=== PATIENT | female | born 1990 | race Caucasian/White ===

== ENCOUNTER 2019-05-12 12:10 | Inpatient (IN) | payer OTHER ==
--- NOTE | 2019-05-12 12:22 | BHS.RME ---
Substance Use & Tx History - Substance Use History Opiates (Heroin) Substance amount: 4 bags Frequency of use: Daily Substance route: Injection (ex: intravenous or skin popping) Date of Last Use: 05/12/19 Cocaine (Powder) Substance amount: $100-150 Frequency of use: Daily Substance route: Injection (ex: intravenous or skin popping) Date of Last Use: 05/10/19 Benzodiazepines Substance amount: klonopin and xanax street 4-5 pills 1 mg Frequency of use: Daily Substance route: Oral Date of Last Use: 05/11/19 COWS - Scale Resting Pulse: 0= [place] 80 or Below Sweatin= Chills/Flushing Restless Observation: 1= Difficult to Sit Still Pupil Size: 0= Normal to Room Light Bone or Joint Aches: 1= Mild Discomfort Runny Nose/ Eye Tearin= Nasal Congestion GI Upset > 30mins: 1= Stomach Cramp Tremor Observation: 1= Tremor [place], Not Seen Yawning Observation: 0= None Anxiety or Irritability: 0= None Goose Flesh Skin: 0=Smooth Skin COWS Score: 6 (sold her methadone bottles for the weekend)
--- NOTE | 2019-05-12 15:02 | HP ---
<Serafin Jose - Last Filed: 05/12/19 16:07> COWS - Scale Resting Pulse: 0= [place] 80 or Below Sweatin= Chills/Flushing Restless Observation: 1= Difficult to Sit Still Pupil Size: 0= Normal to Room Light Bone or Joint Aches: 1= Mild Discomfort Runny Nose/ Eye Tearin= Nasal Congestion GI Upset > 30mins: 1= Stomach Cramp Tremor Observation: 1= Tremor [place], Not Seen Yawning Observation: 0= None Anxiety or Irritability: 0= None Goose Flesh Skin: 0=Smooth Skin COWS Score: 6 (sold her methadone bottles for the weekend) CIWA Score - Admission Criteria OASAS Guidelines: Admission for Medically Managed Detox: Requires at least one of the followin. CIWA greater than 12 2. Seizures within the past 24 hours 3. Delirium tremens within the past 24 hours 4. Hallucinations within the past 24 hours 5. Acute intervention needed for co occurring medical disorder 6. Acute intervention needed for co occurring psychiatric disorder 7. Severe withdrawal that cannot be handled at a lower level of care (continued vomiting, continued diarrhea, abnormal vital signs) requiring intravenous medication and/or fluids 8. Admitting History and Physical - Admission History of Present Illness: States she started using at age 26 after her father . Benzos: First - age 26, Last - 4mg klonopin this AM, uses 10mg Klonopin daily, has withdrawn, no seizures Heroin: First age 26 (states boyfriend gave it to her to ease pain for endometriosis), Last - yest (2 bags), 1-2 bags every few weeks or months, used to sniff, 3 months ago started injecting. Uses when unable to get her methadone. Powdered Cocaine: First - in high school, Last - 1 week ago, $10 bag 3 or 4 times monthly Crack Cocaine: First - 1 month ago, Last - 1 month ago (2 days after first use) , has used only on 2 separate occasions. Crystal Meth: First - 1 week ago, Last - 2 days ago, unsure about dose, but states it was "not much". Has used on 2 occasions EtOH: Last - 7 months ago had a few mimosas at sister's [facility] Ecstasy: First - 10 years ago. States she only used it once. States her Utox likely reflects contamination of her drugs. Started injecting 3 months ago Tobacco: 8-10 cig daily since age 23 Methadone: 115mg. Program: [facility], [address], Saw psychiatrist at [facility] on [address] in [place]. States alprazolam 2 mg bid with 1mg breakthrough PRN dose worked well treating her anxiety. She evidently missed some appointments due to a "misunderstanding" and does not see them regularly anymore. PMH: endometriosis PSH: none Psych: anxiety, ADHD, mild depression FH: alcoholic father (cirrhosis), sister with bipolar Menstrual: LMP today, amount of bleeding varies month to month, cycle length: every 28 days lasts 6 days, no dysmenorrhea, does report dyspareunia Rx: adderol Allergies: none known Reports abdominal pain constant, severe, for 2-3 days. This pain is typical for her menstrual cycle. Will admit to detox with valium taper Admission ROS [facility] - HPI Allergies/Adverse Reactions: Allergies Allergy/AdvReac Type Severity Reaction Status Date / Time No Known Allergies Allergy Verified 05/12/19 15:27 Patient History - Smoking Cessation Smoking history: Current every day smoker Have you smoked in the past 12 months: Yes Hx Chewing Tobacco Use: No Initiated information on smoking cessation: Yes 'Breaking Loose' booklet given: 05/12/19 - Substances abused Benzodiazepine (Klonopin) Substance route: Oral Frequency: Daily Amount used: 5-6 PILLS Age of first use: 28 Date of last use: 05/12/19 Alprazolam (Xanax) Substance route: Oral Frequency: Daily Amount used: 5-6 PILLS Age of first use: 25 Date of last use: 05/12/19 Admission Physical Exam [facility] - Physical General Appearance: Yes: No Apparent Distress, Anxious HEENTM: Yes: Normocephalic Respiratory: Yes: Within Normal Limits, Normal Breath Sounds, No Respiratory Distress, No Accessory Muscle Use Neck: Yes: Within Normal Limits, No masses,lesions,Nodules, Trachea in good position. No: Thyroid enlarged, Thyroid tenderness Cardiology: Yes: Within Normal Limits, Regular Rhythm, Regular Rate, S1, S2 Abdominal: Yes: Within Normal Limits, Normal Bowel Sounds, Non Tender Genitourinary: Yes: Pain (with sex) Back: Yes: Within Normal Limits, Normal Inspection Musculoskeletal: Yes: Within Normal Limits Extremities: Yes: Normal Capillary Refill, Normal Range of Motion, Non-Tender Neurological: Yes: Within Normal Limits, grader operator II-XII NML intact Integumentary: Yes: Within Normal Limits Cleared for Admission S - Detox or Rehab [facility] Level of Care: Medically Supervised Breathalyzer - Breathalyzer Breathalyzer: 0 Urine Drug Screen - Test Device Lot number: [id number] Expiration date: 02/15/21 - Control Is test valid?: Yes - Results Drug screen NEGATIVE: No Urine drug screen results: RENA-Cocaine, MET-Methamphetamine, AMP-Amphetamines, FEN-Fentanyl, MOP-Opiates, MTD-Methadone, BZO-Benzodiazepines, MDMA-Ecstasy Inpatient Rehab Admission - Rehab Decision to Admit Inpatient rehab admission?: Yes - Initial Determination Are CD services needed?: Yes Free of communicable disease: Yes Not in need of hospitalization: Yes - Rehab Admission Criteria Previous failed treatment: Yes Poor recovery environment: Yes Comorbidities: Yes Lacks judgement: Yes Patient is meeting Inpatient Rehab admission criteria:: Yes <Stacie Lin - Last Filed: 05/13/19 08:10> CIWA Score - Admission Criteria OASAS Guidelines: Admission for Medically Managed Detox: Requires at least one of the followin. CIWA greater than 12 2. Seizures within the past 24 hours 3. Delirium tremens within the past 24 hours 4. Hallucinations within the past 24 hours 5. Acute intervention needed for co occurring medical disorder 6. Acute intervention needed for co occurring psychiatric disorder 7. Severe withdrawal that cannot be handled at a lower level of care (continued vomiting, continued diarrhea, abnormal vital signs) requiring intravenous medication and/or fluids 8. Admission Physical Exam [facility] - Vital Signs Vital Signs: Vital Signs - 24 hr 05/12/19 05/12/19 05/12/19 15:30 17:57 20:51 Temperature 97.6 F 99.3 F 98.2 F Pulse Rate 88 90 84 Respiratory 14 17 18 Rate Blood Pressure 112/68 111/70 112/64 05/13/19 05/13/19 05/13/19 00:43 03:30 05:57 Temperature 98.2 F Pulse Rate 72 Respiratory 18 18 16 Rate Blood Pressure 100/70 Cleared for Admission S - Detox or Rehab [facility] Level of Care: Medically Managed (will admit for detox benzos) Detox Regimen/Protocol: Valium Inpatient Rehab Admission - Rehab Decision to Admit Inpatient rehab admission?: No
[2019-05-12 15:34] VITALS: BMI 23.4
[2019-05-12] MEDS ORDERED: MAG HYDROX/AL HYDROX/SIMETH 30 ML UNIT-DOSE CUP PO PRN (15:59)
[2019-05-12] MEDS ORDERED: MELATONIN 5 MG TABLETS PO PRN (15:59)
[2019-05-12] MEDS ORDERED: BISMUTH SUBSALICYLATE 524 MG/30 ML UD PO PRN (15:59)
[2019-05-12] MEDS ORDERED: ACETAMINOPHEN 325 MG TABLET (FP) PO PRN (15:59)
[2019-05-12] MEDS ORDERED: MAGNESIUM CITRATE 300 ML BOTTLE PO PRN (15:59)
[2019-05-12] MEDS ORDERED: MENTHOL/PHENOL 1 EACH UD MM PRN (15:59)
[2019-05-12] MEDS ORDERED: MAGNESIUM HYDROX 2400MG/30ML ORAL SUSPENSION 30 ML CUP PO PRN (15:59)
[2019-05-12] MEDS: diazePAM 5 MG TABLET PO PRN (17:30)
[2019-05-12] MEDS: IBUPROFEN 400 MG TABLET (FP) PO PRN (17:39)
[2019-05-12] MEDS: ACETAMINOPHEN 325 MG TABLET (FP) PO PRN (19:19)
[2019-05-12] MEDS: METHOCARBAMOL 500 MG TABLET PO PRN (20:51)
[2019-05-12] MEDS: hydrOXYzine PAMOATE 25 MG CAPSULE (FP) PO PRN (20:51)
[2019-05-12] MEDS: THIAMINE HCL 100 MG TABLET (FP) PO SCH (21:39)
[2019-05-12] MEDS: diazePAM 5 MG TABLET PO SCH (21:39)
[2019-05-13] MEDS: diazePAM 5 MG TABLET PO SCH ×3 (06:10→21:38)
[2019-05-13] MEDS: ACETAMINOPHEN 325 MG TABLET (FP) PO PRN ×2 (06:10→21:39)
[2019-05-13] MEDS: hydrOXYzine PAMOATE 25 MG CAPSULE (FP) PO PRN (06:12)
[2019-05-13] MEDS ORDERED: METHADONE HCL 10 MG TABLET PO ONE (09:08)
[2019-05-13] MEDS ORDERED: METHADONE 80 MG, METHADONE 30 MG, METHADONE 5 MG PO ONE (09:35)
[2019-05-13] MEDS ORDERED: METHADONE HCL 5 MG TABLET ONE (09:44)
[2019-05-13] MEDS ORDERED: METHADONE HCL 40 MG DISPERSABLE TABLET ONE (09:44)
[2019-05-13] MEDS ORDERED: METHADONE HCL 10 MG TABLET ONE (09:44)
[2019-05-13] MEDS ORDERED: METHADONE HCL 40 MG DISPERSABLE TABLET PO SCH (10:00)
[2019-05-13] MEDS: PRENATAL VITAMINS W/ FOLIC ACID TABLET (FP) PO SCH (10:07)
[2019-05-13] MEDS: IBUPROFEN 400 MG TABLET (FP) PO PRN ×2 (10:08→17:03)
[2019-05-13] MEDS: diazePAM 5 MG TABLET PO PRN ×2 (10:10→17:03)
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
[2019-05-13] MEDS ORDERED: hydrOXYzine PAMOATE 50 MG CAPSULE (FP) PO PRN (12:10)
[2019-05-13] MEDS: LIDOCAINE 5% TOPICAL PATCH TP SCH (12:26)
[2019-05-13] MEDS ORDERED: NICOTINE POLACRILEX 2 MG GUM BUC PRN (12:31)
--- NOTE | 2019-05-13 12:38 | PN ---
BHS CIWA - CIWA Score Nausea/Vomitin-Mild Nausea/No Vomiting Muscle Tremors: 1-None Visible, but [place] Anxiety: 2 Agitation: 2 Paroxysmal Sweats: No Perspiration Orientation: 0-Oriented Tacttile Disturbances: 1-Very Mild Itch/Numbness Auditory Disturbances: 0-None Visual Disturbances: 0-None Headache: 2-Mild CIWA-Ar Total Score: 9 BHS Progress Note (SOAP) Subjective: alert,irritable,anxious,interrupted sleep,pin in the body Objective: 05/13/19 12:36 Vital Signs Temperature 97.9 F 05/13/19 09:09 Pulse Rate 90 05/13/19 09:09 Respiratory Rate 16 05/13/19 09:09 Blood Pressure 113/71 05/13/19 09:09 O2 Sat by Pulse Oximetry (%) Laboratory Last Values POC Urine HCG, Qual Negative 05/12/19 15:59 Assessment: 05/13/19 12:37 withdrawal symptom Plan: continue detox valium regimen,mmtp 115 mgs/day
[2019-05-13] MEDS: NICOTINE 14 MG/24 HOURS TOPICAL PATCH TD SCH (12:56)
[2019-05-13] MEDS: THIAMINE HCL 100 MG TABLET (FP) PO SCH (21:37)
[2019-05-13] MEDS: DOXEPIN HCL 50 MG CAPSULE PO SCH (21:38)
[2019-05-13] MEDS: LIDOCAINE PATCH REMOVAL MC SCH (23:51)
[2019-05-14] MEDS ORDERED: METHADONE HCL 40 MG DISPERSABLE TABLET ONE (04:34)
[2019-05-14] MEDS ORDERED: METHADONE HCL 5 MG TABLET ONE (04:34)
[2019-05-14] MEDS ORDERED: METHADONE HCL 10 MG TABLET ONE (04:34)
[2019-05-14] MEDS: METHADONE 80 MG, METHADONE 30 MG, METHADONE 5 MG PO SCH (05:43)
[2019-05-14] MEDS: diazePAM 5 MG TABLET PO SCH ×2 (05:43→17:08)
[2019-05-14] MEDS: METHOCARBAMOL 500 MG TABLET PO PRN ×2 (05:44→20:03)
[2019-05-14] MEDS ORDERED: METHADONE HCL 10 MG TABLET PO SCH (06:00)
[2019-05-14] MEDS: LIDOCAINE 5% TOPICAL PATCH TP SCH (10:18)
[2019-05-14] MEDS: PRENATAL VITAMINS W/ FOLIC ACID TABLET (FP) PO SCH (10:19)
[2019-05-14] MEDS: NICOTINE 14 MG/24 HOURS TOPICAL PATCH TD SCH (10:19)
[2019-05-14] MEDS: diazePAM 5 MG TABLET PO PRN (10:21)
[2019-05-14 10:58] LABS: HEMATOCRIT 34.3 % (32.4-45.2); HEMOGLOBIN 11.6 GM/dL (10.7-15.3); MCHC 33.9 g/dl (32.0-36.0); MEAN CELL VOLUME 85.6 fl (80-96); MEAN PLT VOLUME 9.6 fl (7.5-11.1); PLATELET COUNT 211 K/MM3 (134-434); RBC 4.01 M/mm3 (3.60-5.2); RDW 13.9 % (11.6-15.6); WHITE BLOOD COUNT 5.5 K/mm3 (4.0-10.0)
[2019-05-14 11:28] LABS: ALBUMIN 3.2 g/dl (3.4-5.0); BILIRUBIN,TOTAL 0.2 mg/dL (0.2-1); BLOOD UREA NITROGEN 11.1 mg/dL (7-18); CALCIUM 8.6 mg/dL (8.5-10.1); CREATININE 0.7 mg/dL (0.55-1.3); POTASSIUM 4.3 mmol/L (3.5-5.1); TOT PROT 6.3 g/dl (6.4-8.2)
--- NOTE | 2019-05-14 13:05 | PN ---
S CIWA - CIWA Score Nausea/Vomitin Muscle Tremors: 1-None Visible, but [place] Anxiety: 2 Agitation: 1-Slight > Activity Paroxysmal Sweats: 2 Orientation: 0-Oriented Tacttile Disturbances: 1-Very Mild Itch/Numbness Auditory Disturbances: 0-None Visual Disturbances: 0-None Headache: 0-None Present CIWA-Ar Total Score: 9 BHS Progress Note (SOAP) Subjective: interrupted sleep, sweats, shakes, abd pains has menses Objective: 05/14/19 13:03 Vital Signs Temperature 99.1 F 05/14/19 08:51 Pulse Rate 82 05/14/19 08:51 Respiratory Rate 18 05/14/19 08:51 Blood Pressure 106/68 05/14/19 08:51 O2 Sat by Pulse Oximetry (%) Laboratory Tests 05/12/19 05/14/19 05/14/19 15:59 08:00 08:00 WBC 5.5 RBC 4.01 Hgb 11.6 Hct 34.3 MCV 85.6 MCH 29.0 MCHC 33.9 RDW 13.9 Plt Count 211 MPV 9.6 Sodium Potassium Chloride Carbon Dioxide Anion Gap BUN Creatinine Est GFR (CKD-EPI)AfAm Est GFR (CKD-EPI)NonAf Random Glucose Calcium Total Bilirubin AST ALT Alkaline Phosphatase Total Protein Albumin POC Urine HCG, Qual Negative RPR Titer HIV 1&2 Antibody Screen Negative HIV P24 Antigen Negative 05/14/19 05/14/19 08:00 08:00 WBC RBC Hgb Hct MCV MCH MCHC RDW Plt Count MPV Sodium 141 Potassium 4.3 Chloride 108 H Carbon Dioxide 27 Anion Gap 6 L BUN 11.1 Creatinine 0.7 Est GFR (CKD-EPI)AfAm 136.66 Est GFR (CKD-EPI)NonAf 117.91 Random Glucose 85 Calcium 8.6 Total Bilirubin 0.2 AST 19 ALT 18 Alkaline Phosphatase 67 Total Protein 6.3 L Albumin 3.2 L POC Urine HCG, Qual RPR Titer Nonreactive HIV 1&2 Antibody Screen HIV P24 Antigen pt aox3 in nad ambulating Assessment: 05/14/19 13:03 withdrawal sx's menses anemia 05/14/19 13:04 Plan: cont. detox increase fluids feso4 325mg daily
[2019-05-14] MEDS: LIDOCAINE PATCH REMOVAL MC SCH (22:01)
[2019-05-14] MEDS: THIAMINE HCL 100 MG TABLET (FP) PO SCH (22:02)
[2019-05-14] MEDS: ACETAMINOPHEN 325 MG TABLET (FP) PO PRN (22:04)
[2019-05-14] MEDS: DOXEPIN HCL 50 MG CAPSULE PO SCH (22:36)
[2019-05-15] MEDS ORDERED: METHADONE HCL 10 MG TABLET ONE (04:33)
[2019-05-15] MEDS ORDERED: METHADONE HCL 5 MG TABLET ONE (04:33)
[2019-05-15] MEDS ORDERED: METHADONE HCL 40 MG DISPERSABLE TABLET ONE (04:33)
[2019-05-15] MEDS ORDERED: diazePAM 5 MG TABLET PO ONE (06:00)
[2019-05-15] MEDS: METHADONE 80 MG, METHADONE 30 MG, METHADONE 5 MG PO SCH (08:44)
--- NOTE | 2019-05-15 10:05 | DS ---
[facility] Detox Discharge Summary Admission Date: 05/12/19 Discharge Date: 05/15/19 - History Present History: Alcohol Dependence, Cocaine Dependence, Opioid Dependence, Sedative Dependence, MMTP Pertinent Past History: Pt with h/o polysubstance use- on MAT methadone 115mg. ON benzo detox. Completed detox. Going to rehab today. Vital Signs - 24 hr 05/14/19 05/14/19 05/14/19 12:45 19:32 20:52 Temperature 98.2 F 98.8 F 98.4 F Pulse Rate 59 L 67 85 Respiratory 16 16 18 Rate Blood Pressure 101/63 107/71 99/59 L 05/15/19 05/15/19 05/15/19 00:30 03:30 07:35 Temperature 97.8 F Pulse Rate 71 Respiratory 16 17 18 Rate Blood Pressure 100/57 L Laboratory Tests 05/12/19 05/14/19 05/14/19 15:59 08:00 08:00 WBC 5.5 RBC 4.01 Hgb 11.6 Hct 34.3 MCV 85.6 MCH 29.0 MCHC 33.9 RDW 13.9 Plt Count 211 MPV 9.6 Sodium Potassium Chloride Carbon Dioxide Anion Gap BUN Creatinine Est GFR (CKD-EPI)AfAm Est GFR (CKD-EPI)NonAf Random Glucose Calcium Total Bilirubin AST ALT Alkaline Phosphatase Total Protein Albumin POC Urine HCG, Qual Negative RPR Titer HIV 1&2 Antibody Screen Negative HIV P24 Antigen Negative 05/14/19 05/14/19 08:00 08:00 WBC RBC Hgb Hct MCV MCH MCHC RDW Plt Count MPV Sodium 141 Potassium 4.3 Chloride 108 H Carbon Dioxide 27 Anion Gap 6 L BUN 11.1 Creatinine 0.7 Est GFR (CKD-EPI)AfAm 136.66 Est GFR (CKD-EPI)NonAf 117.91 Random Glucose 85 Calcium 8.6 Total Bilirubin 0.2 AST 19 ALT 18 Alkaline Phosphatase 67 Total Protein 6.3 L Albumin 3.2 L POC Urine HCG, Qual RPR Titer Nonreactive HIV 1&2 Antibody Screen HIV P24 Antigen Home Medication List Medication Instructions Recorded Confirmed Type Methadone [Dolophine -] 115 mg PO DAILY 05/12/19 05/12/19 History Active Medications Generic Name Dose Route Start Last Admin Trade Name Freq PRN Reason Stop Dose Admin Acetaminophen 650 mg 05/12/19 15:59 05/14/19 22:04 Tylenol - PO 650 mg Q6H PRN Administration PAIN LEVEL 4 - 6 Acetaminophen 650 mg 05/12/19 15:59 Tylenol - PO Q6H PRN FEVER Al Hydroxide/Mg Hydroxide 30 ml 05/12/19 15:59 Mylanta Oral Suspension - PO Q6H PRN DYSPEPSIA Bismuth Subsalicylate 524 mg 05/12/19 15:59 05/15/19 06:43 Pepto-Bismol - PO 524 mg Q1H PRN Administration DIARRHEA Diazepam 10 mg 05/12/19 15:59 05/14/19 10:21 Valium - PO 05/15/19 15:58 10 mg Q4H PRN Administration WITHDRAWAL(CONT SUBST) Doxepin HCl 50 mg 05/13/19 22:00 05/14/19 22:36 Sinequan - PO 50 mg HS SAMM Administration Eucalyptus/Menthol/Phenol/Sorbitol 1 each 05/12/19 15:59 Cepastat Lozenge - MM 05/18/19 16:00 Q4H PRN SORE THROAT Hydroxyzine Pamoate 50 mg 05/13/19 12:10 05/14/19 17:12 Vistaril - PO 50 mg Q4H PRN Administration ANXIETY Ibuprofen 400 mg 05/12/19 15:59 05/13/19 17:03 Motrin - PO 400 mg Q6H PRN Administration PAIN LEVEL 1 - 3 Lidocaine 1 patch 05/13/19 10:30 05/14/19 10:18 Lidoderm Patch - TP 1 patch DAILY SAMM Administration Magnesium Citrate 300 ml 05/12/19 15:59 Citroma - PO Q48H PRN CONSTIPATION Magnesium Hydroxide 30 ml 05/12/19 15:59 Milk Of Magnesia - PO PRN PRN CONSTIPATION Melatonin 5 mg 05/12/19 15:59 05/12/19 21:38 Melatonin PO 5 mg HS PRN Administration INSOMNIA Methadone HCl 80 mg/ Methadone 115 mg 05/14/19 06:00 05/15/19 08:44 HCl 30 mg/ Methadone HCl 5 mg PO 05/20/19 05:59 115 mg DAILY@0600 SAMM Administration Methocarbamol 500 mg 05/12/19 15:59 05/14/19 20:03 Robaxin - PO 05/18/19 16:00 500 mg Q6H PRN Administration MUSCLE SPASMS Miscellaneous 1 each 05/13/19 22:00 05/14/19 22:01 Lidoderm Patch Removal MC 1 each DAILY@2200 SAMM Administration Nicotine 14 mg 05/13/19 12:45 05/14/19 10:19 Nicoderm Patch - TD 14 mg DAILY SAMM Administration Nicotine Polacrilex 2 mg 05/13/19 12:31 Nicorette Gum - BUC Q2H PRN NICOTINE REPLACEMENT RX Multivit/Folic Acid/Iron 1 tab 05/13/19 10:00 05/14/19 10:19 Vitamins (Sjr) - PO 1 tab DAILY SAMM Administration Thiamine HCl 100 mg 05/12/19 22:00 05/14/19 22:02 Vitamin B1 - PO 100 mg HS SAMM Administration Laboratory Tests 05/12/19 05/14/19 05/14/19 15:59 08:00 08:00 WBC 5.5 RBC 4.01 Hgb 11.6 Hct 34.3 MCV 85.6 MCH 29.0 MCHC 33.9 RDW 13.9 Plt Count 211 MPV 9.6 Sodium Potassium Chloride Carbon Dioxide Anion Gap BUN Creatinine Est GFR (CKD-EPI)AfAm Est GFR (CKD-EPI)NonAf Random Glucose Calcium Total Bilirubin AST ALT Alkaline Phosphatase Total Protein Albumin POC Urine HCG, Qual Negative RPR Titer HIV 1&2 Antibody Screen Negative HIV P24 Antigen Negative 05/14/19 05/14/19 08:00 08:00 WBC RBC Hgb Hct MCV MCH MCHC RDW Plt Count MPV Sodium 141 Potassium 4.3 Chloride 108 H Carbon Dioxide 27 Anion Gap 6 L BUN 11.1 Creatinine 0.7 Est GFR (CKD-EPI)AfAm 136.66 Est GFR (CKD-EPI)NonAf 117.91 Random Glucose 85 Calcium 8.6 Total Bilirubin 0.2 AST 19 ALT 18 Alkaline Phosphatase 67 Total Protein 6.3 L Albumin 3.2 L POC Urine HCG, Qual RPR Titer Nonreactive HIV 1&2 Antibody Screen HIV P24 Antigen Vital Signs - 24 hr 05/14/19 05/14/19 05/14/19 12:45 19:32 20:52 Temperature 98.2 F 98.8 F 98.4 F Pulse Rate 59 L 67 85 Respiratory 16 16 18 Rate Blood Pressure 101/63 107/71 99/59 L 05/15/19 05/15/19 05/15/19 00:30 03:30 07:35 Temperature 97.8 F Pulse Rate 71 Respiratory 16 17 18 Rate Blood Pressure 100/57 L - Physical Exam Results Vital Signs: Vital Signs Temperature 97.8 F 05/15/19 07:35 Pulse Rate 71 05/15/19 07:35 Respiratory Rate 18 05/15/19 07:35 Blood Pressure 100/57 L 05/15/19 07:35 O2 Sat by Pulse Oximetry (%) - Treatment Hospital Course: Detox Protocol Followed, Detoxed Safely, Responded well, Discharged Condition Good, Rehab Referral Accepted - Medication Discharge Medications: Ambulatory Orders Methadone [Dolophine -] 115 mg PO DAILY 05/12/19 - AMA Did Patient Leave Against Medical Advice: Yes
[2019-05-15] MEDS: PRENATAL VITAMINS W/ FOLIC ACID TABLET (FP) PO SCH (10:46)
[2019-05-15] MEDS: NICOTINE 14 MG/24 HOURS TOPICAL PATCH TD SCH (10:46)
[2019-05-15] MEDS: LIDOCAINE 5% TOPICAL PATCH TP SCH (10:46)
[2019-05-15 12:15] VITALS: BP 94/64; PULSE 64; TEMP 98.4
== END 2019-05-15 13:25 | disposition other institution (70) | DRG 773 ==
LOC: YASAS 12:10 → Y6N 16:28
PROVIDERS: ADMIT Allergy & Immunology; ATTEND Allergy & Immunology
PROC: HZ2ZZZZ Detoxification Services for Substance Abuse Treatment (ICD-10-PCS; principal; 2019-05-12)
DX: F10.230 Alcohol dependence with withdrawal, uncomplicated (principal); F11.20 Opioid dependence, uncomplicated; F13.20 Sedative, hypnotic or anxiolytic dependence, uncomplicated; F14.20 Cocaine dependence, uncomplicated; F17.210 Nicotine dependence, cigarettes, uncomplicated; F19.280 Other psychoactive substance dependence with psychoactive substance-induced anxiety disorder; F19.282 Other psychoactive substance dependence with psychoactive substance-induced sleep disorder; F90.9 Attention-deficit hyperactivity disorder, unspecified type; D64.9 Anemia, unspecified; Z62.810 Personal history of physical and sexual abuse in childhood; Z91.410 Personal history of adult physical and sexual abuse; Z87.42 Personal history of other diseases of the female genital tract
CPT/HCPCS: 36415; 80053; 81025; 85027; 86593; 87389

== ENCOUNTER 2019-05-15 13:01 | Inpatient (IN) | payer OTHER ==
[2019-05-15] MEDS ORDERED: P-EPHED 60MG/TRIPROLIDI 2.5MG TABLET PO PRN (13:32)
[2019-05-15] MEDS ORDERED: ACETAMINOPHEN 325 MG TABLET (FP) PO PRN (13:32)
[2019-05-15] MEDS ORDERED: guaiFENesin 200 MG/10 ML 10 ML UNIT-DOSE CUPS PO PRN (13:32)
[2019-05-15] MEDS ORDERED: MENTHOL/PHENOL 1 EACH UD MM PRN (13:32)
[2019-05-15] MEDS ORDERED: MAGNESIUM CITRATE 300 ML BOTTLE PO PRN (13:32)
[2019-05-15] MEDS ORDERED: MAG HYDROX/AL HYDROX/SIMETH 30 ML UNIT-DOSE CUP PO PRN (13:32)
[2019-05-15] MEDS ORDERED: MAGNESIUM HYDROX 2400MG/30ML ORAL SUSPENSION 30 ML CUP PO PRN (13:32)
[2019-05-15] MEDS ORDERED: IBUPROFEN 400 MG TABLET (FP) PO PRN (13:32)
[2019-05-15] MEDS ORDERED: LOPERAMIDE HCL 2 MG CAPSULE PO PRN (13:32)
--- NOTE | 2019-05-15 13:36 | PN ---
[facility] Progress Note Note: Patient admitted to [facility], labs, problem list, documentation including detox physical and treatment reviewed, home medications reviewed. Orders placed; continue to monitor.
--- NOTE | 2019-05-15 13:37 | HP ---
[facility] Rehab Assess/Revision - Admission History Admitted to Rehab from: [facility] Date of Admission to Rehab: 05/15/19 - Findings Detox History & Physical reviewed: Yes Concur with findings: Yes Inpatient Rehab Admission - Rehab Decision to Admit Inpatient rehab admission?: Yes - Initial Determination Are CD services needed?: Yes Free of communicable disease: Yes Not in need of hospitalization: Yes - Rehab Admission Criteria Previous failed treatment: Yes Poor recovery environment: Yes Comorbidities: No Lacks judgement: Yes Patient is meeting Inpatient Rehab admission criteria:: Yes
[2019-05-15] MEDS: THIAMINE HCL 100 MG TABLET (FP) PO SCH (21:23)
[2019-05-15] MEDS: MELATONIN 5 MG TABLETS PO PRN (21:23)
[2019-05-16] MEDS ORDERED: METHADONE HCL 5 MG TABLET ONE (07:02)
[2019-05-16] MEDS ORDERED: METHADONE HCL 10 MG TABLET ONE (07:02)
[2019-05-16] MEDS ORDERED: METHADONE HCL 40 MG DISPERSABLE TABLET ONE (07:02)
[2019-05-16] MEDS: METHADONE 80 MG, METHADONE 30 MG, METHADONE 5 MG PO SCH (07:05)
[2019-05-16] MEDS ORDERED: METHADONE 80 MG, METHADONE 30 MG, METHADONE 5 MG PO SCH (10:00)
[2019-05-16] MEDS ORDERED: METHADONE HCL 40 MG DISPERSABLE TABLET PO SCH (10:00)
[2019-05-16] MEDS: NICOTINE 14 MG/24 HOURS TOPICAL PATCH TD SCH (10:07)
[2019-05-16] MEDS: PRENATAL VITAMINS W/ FOLIC ACID TABLET (FP) PO SCH (10:08)
--- NOTE | 2019-05-16 12:32 | CONSULT ---
[facility] Psychiatric Consult - Data Date of interview: 05/16/19 Admission source: [facility] Identifying data: Patient is a 28 year old single female, without children, unemployed, domiciled, and is supported by family. This is patient's first admission to rehab at [facility]. Patient admitted to for opioid, cocaine, and benzodiazepine dependence. Substance Abuse History: Smoking Cessation. Smoking history: Current every day smoker. Have you smoked in the past 12 months: Yes. Hx Chewing Tobacco Use: No. Initiated information on smoking cessation: Yes. 'Breaking Loose' booklet given: 05/12/19. - Substances abused. Benzodiazepine (Klonopin). Substance route: Oral. Frequency: Daily. Amount used: 5-6 PILLS. Age of first use: 28. Date of last use: 05/12/19. Alprazolam (Xanax). Substance route: Oral. Frequency: Daily. Amount used: 5-6 PILLS. Age of first use: 25. Date of last use: 05/12/19 Medical History: Significant for endometriosis Psychiatric History: Patient's first psychiatric contact was three years ago after her dad . Ms. Mckeon saw a psychiatrist +therapist at [facility] who diagnosed her with MDD + Anxiety disorder and prescribed her xanax+celexa. After one year she discontinued treatment. Patient then saw a psychiatrist at [facility] prison rehab treatment several weeks ago who prescribed her doxepin 50mg HS. Patient seen by Dr. Olea in detox and was prescribed doxepin 50mg HS + Vistaril 50mg q4h for anxiety. Patient denies history of psychiatric hospitalizations and suicide attempt. Physical/Sexual Abuse/Trauma History: denies. Mental Status Exam - Mental Status Exam Alert and Oriented to: Time, Place, Person Cognitive Function: Good Patient Appearance: Well Groomed Mood: Sad Affect: Mood Congruent Patient Behavior: Crying (tearful- does not want to speak about the reason she is tearful. ) Speech Pattern: Appropriate Voice Loudness: Normal Thought Process: Intact, Goal Oriented Thought Disorder: Not Present Hallucinations: Denies Suicidal Ideation: Denies Homicidal Ideation: Denies Insight/Judgement: Poor Sleep: Fair Appetite: Fair Muscle strength/Tone: Normal Gait/Station: Normal Psychiatric Findings - Problem List ([place] 1, 2,3) (1) Cocaine use disorder Current Visit: Yes Status: Acute (2) Anxiety disorder Current Visit: Yes Status: Chronic (3) Substance-induced sleep disorder Current Visit: Yes Status: Acute (4) Opioid dependence on agonist therapy Current Visit: Yes Status: Chronic (5) Methamphetamine dependence Current Visit: Yes Status: Chronic (6) Substance-induced anxiety disorder Current Visit: Yes Status: Acute - Initial Treatment Plan Initial Treatment Plan: Psychoeducation provided. Rehab in progress. Will continue Doxepin 50mg HS + Vistaril 50mg q4h for anxiety. Benefits and side effects discussed. Verbal consent given.
[2019-05-16] MEDS ORDERED: PT OWN MED DRAWER 7, Y5N ONE (21:04)
[2019-05-16] MEDS: THIAMINE HCL 100 MG TABLET (FP) PO SCH (21:59)
[2019-05-16] MEDS: DOXEPIN HCL 50 MG CAPSULE PO SCH (21:59)
[2019-05-16] MEDS: hydrOXYzine PAMOATE 50 MG CAPSULE (FP) PO PRN (22:00)
[2019-05-17] MEDS ORDERED: METHADONE HCL 5 MG TABLET ONE (06:09)
[2019-05-17] MEDS ORDERED: METHADONE HCL 40 MG DISPERSABLE TABLET ONE (06:09)
[2019-05-17] MEDS ORDERED: METHADONE HCL 10 MG TABLET ONE (06:09)
[2019-05-17] MEDS: METHADONE 80 MG, METHADONE 30 MG, METHADONE 5 MG PO SCH (07:02)
[2019-05-17] MEDS: hydrOXYzine PAMOATE 50 MG CAPSULE (FP) PO PRN ×2 (07:04→21:24)
[2019-05-17] MEDS: PRENATAL VITAMINS W/ FOLIC ACID TABLET (FP) PO SCH (09:39)
[2019-05-17] MEDS: NICOTINE 14 MG/24 HOURS TOPICAL PATCH TD SCH (09:39)
[2019-05-17] MEDS: THIAMINE HCL 100 MG TABLET (FP) PO SCH (21:24)
[2019-05-17] MEDS: DOXEPIN HCL 50 MG CAPSULE PO SCH (21:25)
[2019-05-18] MEDS ORDERED: METHADONE HCL 5 MG TABLET ONE (06:04)
[2019-05-18] MEDS ORDERED: METHADONE HCL 40 MG DISPERSABLE TABLET ONE (06:05)
[2019-05-18] MEDS ORDERED: METHADONE HCL 10 MG TABLET ONE (06:05)
[2019-05-18] MEDS: METHADONE 80 MG, METHADONE 30 MG, METHADONE 5 MG PO SCH (06:51)
[2019-05-18] MEDS: hydrOXYzine PAMOATE 50 MG CAPSULE (FP) PO PRN ×2 (06:53→21:13)
[2019-05-18] MEDS: PRENATAL VITAMINS W/ FOLIC ACID TABLET (FP) PO SCH (10:18)
[2019-05-18] MEDS: NICOTINE 14 MG/24 HOURS TOPICAL PATCH TD SCH (10:18)
[2019-05-18] MEDS ORDERED: PT OWN MED DRAWER 7, Y5N ONE ×2 (21:04→21:48)
[2019-05-18] MEDS: MELATONIN 5 MG TABLETS PO PRN (21:12)
[2019-05-18] MEDS: THIAMINE HCL 100 MG TABLET (FP) PO SCH (21:12)
[2019-05-18] MEDS: DOXEPIN HCL 50 MG CAPSULE PO SCH (21:13)
[2019-05-19] MEDS ORDERED: METHADONE HCL 10 MG TABLET ONE (06:13)
[2019-05-19] MEDS ORDERED: METHADONE HCL 5 MG TABLET ONE (06:13)
[2019-05-19] MEDS ORDERED: METHADONE HCL 40 MG DISPERSABLE TABLET ONE (06:14)
[2019-05-19] MEDS: METHADONE 80 MG, METHADONE 30 MG, METHADONE 5 MG PO SCH (06:20)
[2019-05-19] MEDS: hydrOXYzine PAMOATE 50 MG CAPSULE (FP) PO PRN ×2 (06:21→21:04)
[2019-05-19] MEDS: NICOTINE 14 MG/24 HOURS TOPICAL PATCH TD SCH (10:08)
[2019-05-19] MEDS: PRENATAL VITAMINS W/ FOLIC ACID TABLET (FP) PO SCH (10:09)
[2019-05-19] MEDS: THIAMINE HCL 100 MG TABLET (FP) PO SCH (21:03)
[2019-05-19] MEDS: DOXEPIN HCL 50 MG CAPSULE PO SCH (21:04)
[2019-05-20] MEDS ORDERED: METHADONE HCL 10 MG TABLET ONE (06:16)
[2019-05-20] MEDS ORDERED: METHADONE HCL 5 MG TABLET ONE (06:16)
[2019-05-20] MEDS ORDERED: METHADONE HCL 40 MG DISPERSABLE TABLET ONE (06:16)
[2019-05-20] MEDS: METHADONE 80 MG, METHADONE 30 MG, METHADONE 5 MG PO SCH (06:51)
[2019-05-20] MEDS: PRENATAL VITAMINS W/ FOLIC ACID TABLET (FP) PO SCH (10:10)
[2019-05-20] MEDS: NICOTINE 14 MG/24 HOURS TOPICAL PATCH TD SCH (10:10)
[2019-05-20] MEDS: hydrOXYzine PAMOATE 50 MG CAPSULE (FP) PO PRN ×2 (10:12→21:15)
[2019-05-20] MEDS: DOXEPIN HCL 50 MG CAPSULE PO SCH (21:14)
[2019-05-20] MEDS: THIAMINE HCL 100 MG TABLET (FP) PO SCH (21:14)
[2019-05-20] MEDS ORDERED: COLLOIDAL OATMEAL 1 BAR EACH TP PRN (22:50)
[2019-05-21] MEDS ORDERED: METHADONE HCL 5 MG TABLET ONE (06:47)
[2019-05-21] MEDS ORDERED: METHADONE HCL 10 MG TABLET ONE (06:47)
[2019-05-21] MEDS ORDERED: METHADONE HCL 40 MG DISPERSABLE TABLET ONE (06:47)
[2019-05-21] MEDS: METHADONE 80 MG, METHADONE 30 MG, METHADONE 5 MG PO SCH (06:50)
[2019-05-21] MEDS: hydrOXYzine PAMOATE 50 MG CAPSULE (FP) PO PRN ×2 (06:52→18:14)
[2019-05-21] MEDS: NICOTINE 14 MG/24 HOURS TOPICAL PATCH TD SCH (10:00)
[2019-05-21] MEDS: PRENATAL VITAMINS W/ FOLIC ACID TABLET (FP) PO SCH (10:00)
[2019-05-21] MEDS: THIAMINE HCL 100 MG TABLET (FP) PO SCH (21:05)
[2019-05-21] MEDS: DOXEPIN HCL 50 MG CAPSULE PO SCH (21:06)
[2019-05-21] MEDS: DOCUSATE SODIUM 100 MG CAPSULE (FP) PO SCH (21:07)
[2019-05-22] MEDS ORDERED: METHADONE HCL 5 MG TABLET ONE (06:52)
[2019-05-22] MEDS ORDERED: METHADONE HCL 40 MG DISPERSABLE TABLET ONE (06:53)
[2019-05-22] MEDS ORDERED: METHADONE HCL 10 MG TABLET ONE (06:53)
[2019-05-22] MEDS: METHADONE 80 MG, METHADONE 30 MG, METHADONE 5 MG PO SCH (07:17)
[2019-05-22] MEDS: PRENATAL VITAMINS W/ FOLIC ACID TABLET (FP) PO SCH (09:50)
[2019-05-22] MEDS: NICOTINE 14 MG/24 HOURS TOPICAL PATCH TD SCH (09:50)
[2019-05-22] MEDS: hydrOXYzine PAMOATE 50 MG CAPSULE (FP) PO PRN ×2 (09:51→21:16)
--- NOTE | 2019-05-22 15:12 | PREP.REFER ---
HIV PrEP/PEP - PrEP HIV Risk Assessment When was your last HIV test?: 05/15/19-negative HIV Test offered: Accepted Are you concerned about any sexual encounters past 6 months?: No Have you had a STI in the last 6 months?: No Have you shared needles or other equipment?: No Are you interested in daily medication to help prevent HIV?: No (Patient is aware of PrEP, does not believe she needs it at this time, but has a resource in case she changes her mind.) Recommendation: None at this time
[2019-05-22] MEDS: DOCUSATE SODIUM 100 MG CAPSULE (FP) PO SCH (21:16)
[2019-05-22] MEDS: THIAMINE HCL 100 MG TABLET (FP) PO SCH (21:16)
[2019-05-22] MEDS: DOXEPIN HCL 50 MG CAPSULE PO SCH (21:17)
[2019-05-22] MEDS: MELATONIN 5 MG TABLETS PO PRN (21:17)
[2019-05-23] MEDS ORDERED: METHADONE HCL 10 MG TABLET ONE (06:08)
[2019-05-23] MEDS ORDERED: METHADONE HCL 5 MG TABLET ONE (06:08)
[2019-05-23] MEDS ORDERED: METHADONE HCL 40 MG DISPERSABLE TABLET ONE (06:09)
[2019-05-23] MEDS: METHADONE 80 MG, METHADONE 30 MG, METHADONE 5 MG PO SCH (07:01)
[2019-05-23] MEDS: NICOTINE 7 MG/24 HOURS TOPICAL PATCH TD SCH (10:01)
[2019-05-23] MEDS: PRENATAL VITAMINS W/ FOLIC ACID TABLET (FP) PO SCH (10:01)
[2019-05-23] MEDS: hydrOXYzine PAMOATE 50 MG CAPSULE (FP) PO PRN ×2 (10:02→21:09)
[2019-05-23] MEDS: DOCUSATE SODIUM 100 MG CAPSULE (FP) PO SCH (21:08)
[2019-05-23] MEDS: MELATONIN 5 MG TABLETS PO PRN (21:09)
[2019-05-23] MEDS: THIAMINE HCL 100 MG TABLET (FP) PO SCH (21:09)
[2019-05-23] MEDS: DOXEPIN HCL 50 MG CAPSULE PO SCH (21:09)
[2019-05-24] MEDS ORDERED: METHADONE HCL 10 MG TABLET ONE (06:34)
[2019-05-24] MEDS ORDERED: METHADONE HCL 5 MG TABLET ONE (06:34)
[2019-05-24] MEDS ORDERED: METHADONE HCL 40 MG DISPERSABLE TABLET ONE (06:34)
[2019-05-24] MEDS: METHADONE 80 MG, METHADONE 30 MG, METHADONE 5 MG PO SCH (06:44)
[2019-05-24] MEDS: PRENATAL VITAMINS W/ FOLIC ACID TABLET (FP) PO SCH (10:08)
[2019-05-24] MEDS: NICOTINE 7 MG/24 HOURS TOPICAL PATCH TD SCH (10:09)
[2019-05-24] MEDS: hydrOXYzine PAMOATE 50 MG CAPSULE (FP) PO PRN ×2 (10:09→22:04)
[2019-05-24] MEDS: THIAMINE HCL 100 MG TABLET (FP) PO SCH (22:04)
[2019-05-24] MEDS: DOCUSATE SODIUM 100 MG CAPSULE (FP) PO SCH (22:04)
[2019-05-24] MEDS: DOXEPIN HCL 50 MG CAPSULE PO SCH (22:04)
[2019-05-24] MEDS: MELATONIN 5 MG TABLETS PO PRN (22:04)
[2019-05-25] MEDS ORDERED: METHADONE HCL 10 MG TABLET ONE (06:54)
[2019-05-25] MEDS ORDERED: METHADONE HCL 40 MG DISPERSABLE TABLET ONE (06:54)
[2019-05-25] MEDS ORDERED: METHADONE HCL 5 MG TABLET ONE (06:54)
[2019-05-25] MEDS: METHADONE 80 MG, METHADONE 30 MG, METHADONE 5 MG PO SCH (06:59)
[2019-05-25] MEDS: NICOTINE 7 MG/24 HOURS TOPICAL PATCH TD SCH (10:04)
[2019-05-25] MEDS: hydrOXYzine PAMOATE 50 MG CAPSULE (FP) PO PRN ×2 (10:05→21:09)
[2019-05-25] MEDS: PRENATAL VITAMINS W/ FOLIC ACID TABLET (FP) PO SCH (10:05)
[2019-05-25] MEDS: THIAMINE HCL 100 MG TABLET (FP) PO SCH (21:08)
[2019-05-25] MEDS: DOCUSATE SODIUM 100 MG CAPSULE (FP) PO SCH (21:08)
[2019-05-25] MEDS: DOXEPIN HCL 50 MG CAPSULE PO SCH (21:08)
[2019-05-25] MEDS: MELATONIN 5 MG TABLETS PO PRN (21:08)
[2019-05-26] MEDS ORDERED: METHADONE HCL 10 MG TABLET ONE (06:27)
[2019-05-26] MEDS ORDERED: METHADONE HCL 5 MG TABLET ONE (06:27)
[2019-05-26] MEDS ORDERED: METHADONE HCL 40 MG DISPERSABLE TABLET ONE (06:27)
[2019-05-26] MEDS: METHADONE 80 MG, METHADONE 30 MG, METHADONE 5 MG PO SCH (06:28)
[2019-05-26] MEDS: NICOTINE 7 MG/24 HOURS TOPICAL PATCH TD SCH (10:15)
[2019-05-26] MEDS: hydrOXYzine PAMOATE 50 MG CAPSULE (FP) PO PRN ×2 (10:15→21:48)
[2019-05-26] MEDS: PRENATAL VITAMINS W/ FOLIC ACID TABLET (FP) PO SCH (10:15)
[2019-05-26] MEDS: THIAMINE HCL 100 MG TABLET (FP) PO SCH (21:47)
[2019-05-26] MEDS: DOCUSATE SODIUM 100 MG CAPSULE (FP) PO SCH (21:47)
[2019-05-26] MEDS: MELATONIN 5 MG TABLETS PO PRN (21:48)
[2019-05-26] MEDS: DOXEPIN HCL 50 MG CAPSULE PO SCH (21:48)
[2019-05-27] MEDS ORDERED: METHADONE 80 MG, METHADONE 30 MG, METHADONE 5 MG PO SCH (06:00)
[2019-05-27] MEDS ORDERED: METHADONE HCL 5 MG TABLET ONE (06:09)
[2019-05-27] MEDS ORDERED: METHADONE HCL 10 MG TABLET ONE (06:10)
[2019-05-27] MEDS ORDERED: METHADONE HCL 40 MG DISPERSABLE TABLET ONE (06:10)
[2019-05-27 07:28] VITALS: BP 99/62; PULSE 84; TEMP 98.4
[2019-05-27] MEDS: PRENATAL VITAMINS W/ FOLIC ACID TABLET (FP) PO SCH (09:30)
[2019-05-27] MEDS: NICOTINE 7 MG/24 HOURS TOPICAL PATCH TD SCH (09:30)
--- NOTE | 2019-05-27 09:58 | DS ---
[facility] Rehab Discharge Summary - [facility] Rehab Discharge Summary Admission Date: 05/15/19 Discharge Date: 05/27/19 - History Present History: Cocaine dependence, MMTP Pertinent Past History: tates she started using at age 26 after her father . Benzos: First - age 26, uses 10mg Klonopin daily, has withdrawn, no seizures Heroin: First age 26 (states boyfriend gave it to her to ease pain for endometriosis), 1-2 bags every few weeks or months, used to sniff, 3 months ago started injecting. Uses when unable to get her methadone. Powdered Cocaine: First - in high school,$10 bag 3 or 4 times monthly Crack Cocaine: First - 1 month ago, has used only on 2 separate occasions. Crystal Meth: First - 1 week ago,Has used on 2 occasions EtOH: Last - 7 months ago had a few mimosas at sister's constitution party Ecstasy: First - 10 years ago. States she only used it once Started injecting 3 months ago Tobacco: 8-10 cig daily since age 23 Methadone: 115mg. Program: [facility], [address], [phone] Saw psychiatrist at [facility] on [address] in [place]. States alprazolam 2 mg bid with 1mg breakthrough PRN dose worked well treating her anxiety. She evidently missed some appointments due to a "misunderstanding" and does not see them regularly anymore. - Discharge Physical Exam Vital Signs: Vital Signs Temperature 98.4 F 05/27/19 06:55 Pulse Rate 84 05/27/19 06:55 Respiratory Rate 18 05/27/19 06:55 Blood Pressure 99/62 05/27/19 06:55 O2 Sat by Pulse Oximetry (%) Pertinent Admission Physical Exam Findings: Physical General Appearance: No Apparent Distress HEENTM: Normocephalic Respiratory: clear Breath Sounds, Neck: supple Cardiology: S1, S2 Abdominal: +Bowel Sounds, on Musculoskeletal: Full weight bearing, steady gait Neurological: sheriffs officer II-XII intact - Treatment Discharge Condition: Outpatient referral accepted (medically stable for discharge.Patient will return to her methadone [id number] acceptance to [facility].) Hospital Course: Patient attended groups, had 1:1 with her provider, was seen by the psychiatric service. She was adherent to her treatment plan and medication regimen. She had not acute or urgent medical problems while in rehab. - Medication Discharge Medications: Ambulatory Orders Methadone [Dolophine -] 115 mg PO DAILY 05/12/19 - Medication-Assisted Treatment (MAT) Medication-Assisted Treatment (MAT): No MAT Follow-up Referral: MMTP - Discharge Instructions Diet, activity, other medical instructions: Diet: as tolerated Activity: as tolerated Other medical instructions: Please follow up with aftercare referral. - Diagnosis (1) Cocaine use disorder Current Visit: Yes Status: Chronic (2) Opioid dependence on agonist therapy Current Visit: Yes Status: Chronic - Follow-up Referral Minutes to complete discharge: 15 - AMA Did Patient Leave Against Medical Advice: No
== END 2019-05-27 10:37 | disposition home or self-care (01) | DRG 772 ==
LOC: YASAS 13:01 → Y3E 13:02
PROVIDERS: ADMIT Allergy & Immunology; ATTEND Allergy & Immunology
PROC: HZ42ZZZ Group Counseling for Substance Abuse Treatment, Cognitive-Behavioral (ICD-10-PCS; principal; 2019-05-15)
DX: F11.20 Opioid dependence, uncomplicated (principal); F14.20 Cocaine dependence, uncomplicated; F13.20 Sedative, hypnotic or anxiolytic dependence, uncomplicated; F15.20 Other stimulant dependence, uncomplicated; F17.210 Nicotine dependence, cigarettes, uncomplicated; F19.282 Other psychoactive substance dependence with psychoactive substance-induced sleep disorder; F19.280 Other psychoactive substance dependence with psychoactive substance-induced anxiety disorder; F41.8 Other specified anxiety disorders; F32.9 Major depressive disorder, single episode, unspecified; Z87.42 Personal history of other diseases of the female genital tract

== ENCOUNTER 2020-11-02 12:36 | Inpatient (IN) | payer OTHER ==
[2020-11-02 13:34] VITALS: BMI 28.3
[2020-11-02] MEDS ORDERED: MAG HYDROX/AL HYDROX/SIMETH 30 ML UNIT-DOSE CUP PO PRN (16:56)
[2020-11-02] MEDS ORDERED: methaDONE HCL 10 MG TABLET (FOR DETOX USE ONLY) PO ONE (16:56)
[2020-11-02] MEDS ORDERED: clonazePAM 0.5 MG ODT TABLETS SL PRN (16:56)
[2020-11-02] MEDS ORDERED: cloNIDine HCL 0.1 MG TABLET PO PRN (16:56)
[2020-11-02] MEDS ORDERED: ONDANSETRON *ODT* 4 MG TABLET SL PRN (16:56)
[2020-11-02] MEDS ORDERED: MAGNESIUM HYDROX 2400MG/30ML ORAL SUSPENSION 30 ML CUP PO PRN (16:56)
[2020-11-02] MEDS ORDERED: MAGNESIUM CITRATE 300 ML BOTTLE PO PRN (16:56)
[2020-11-02] MEDS ORDERED: ACETAMINOPHEN 325 MG TABLET (FP) PO PRN ×2 (16:56)
[2020-11-02] MEDS ORDERED: MENTHOL/PHENOL 1 EACH UD MM PRN (16:56)
[2020-11-02] MEDS ORDERED: BISMUTH SUBSALICYLATE 524 MG/30 ML PO PRN (16:56)
[2020-11-02] MEDS: NICOTINE 14 MG/24 HOURS TOPICAL PATCH TD SCH (18:13)
[2020-11-02] MEDS: hydrOXYzine PAMOATE 25 MG CAPSULE (FP) PO SCH ×2 (18:22→22:24)
[2020-11-02] MEDS: NICOTINE 10 MG CARTRIDGE (INHALER) IH PRN (18:28)
[2020-11-02] MEDS: THIAMINE HCL 100 MG TABLET (FP) PO SCH (22:24)
[2020-11-02] MEDS: MELATONIN 5 MG TABLETS PO SCH (22:24)
[2020-11-03] MEDS: hydrOXYzine PAMOATE 25 MG CAPSULE (FP) PO SCH ×5 (05:58→22:10)
[2020-11-03] MEDS ORDERED: methaDONE HCL 10 MG TABLET (FOR DETOX USE ONLY) ONE (09:01)
[2020-11-03] MEDS: NICOTINE 14 MG/24 HOURS TOPICAL PATCH TD SCH (10:12)
[2020-11-03] MEDS: LIDOCAINE 5% TOPICAL PATCH TP SCH (10:12)
[2020-11-03] MEDS: PRENATAL VITAMINS W/ FOLIC ACID TABLET (FP) PO SCH (10:14)
[2020-11-03 11:02] LABS: HEMATOCRIT 35.9 % (32.4-45.2); HEMOGLOBIN 12.3 GM/dL (10.7-15.3); MCH 29.6 pg (25.7-33.7); MCHC 34.1 g/dl (32.0-36.0); MEAN CELL VOLUME 86.7 fl (80-96); MEAN PLT VOLUME 9.5 fl (7.5-11.1); PLATELET COUNT 200 10^3/uL (134-434); RBC 4.15 M/mm3 (3.60-5.2); RDW 13.5 % (11.6-15.6); WHITE BLOOD COUNT 6.5 K/mm3 (4.0-10.0)
[2020-11-03 11:23] LABS: ALBUMIN 3.3 g/dl (3.4-5.0)
[2020-11-03 11:25] LABS: CALCIUM 8.6 mg/dL (8.5-10.1)
[2020-11-03 11:26] LABS: BILIRUBIN,TOTAL 0.3 mg/dL (0.2-1); BLOOD UREA NITROGEN 5.5 mg/dL (7-18); CREATININE 0.6 mg/dL (0.55-1.3)
[2020-11-03 11:28] LABS: TOT PROT 6.3 g/dl (6.4-8.2)
[2020-11-03] MEDS: DOXEPIN HCL 50 MG CAPSULE PO SCH (22:10)
[2020-11-03] MEDS: THIAMINE HCL 100 MG TABLET (FP) PO SCH (22:10)
[2020-11-03] MEDS: LIDOCAINE PATCH REMOVAL MC SCH (22:11)
[2020-11-03] MEDS: MELATONIN 5 MG TABLETS PO SCH (22:11)
[2020-11-04] MEDS: hydrOXYzine PAMOATE 25 MG CAPSULE (FP) PO SCH ×6 (05:40→22:25)
[2020-11-04] MEDS: METHOCARBAMOL 500 MG TABLET PO PRN (08:32)
[2020-11-04] MEDS ORDERED: methaDONE HCL 10 MG TABLET (FOR DETOX USE ONLY) PO ONE (10:00)
[2020-11-04] MEDS: NICOTINE 14 MG/24 HOURS TOPICAL PATCH TD SCH (10:28)
[2020-11-04] MEDS: LIDOCAINE 5% TOPICAL PATCH TP SCH (10:28)
[2020-11-04] MEDS: PRENATAL VITAMINS W/ FOLIC ACID TABLET (FP) PO SCH (10:28)
[2020-11-04] MEDS: IBUPROFEN 400 MG TABLET (FP) PO PRN (17:20)
[2020-11-04] MEDS: MELATONIN 5 MG TABLETS PO SCH (22:24)
[2020-11-04] MEDS: THIAMINE HCL 100 MG TABLET (FP) PO SCH (22:25)
[2020-11-04] MEDS: DOXEPIN HCL 50 MG CAPSULE PO SCH (22:25)
[2020-11-04] MEDS: LIDOCAINE PATCH REMOVAL MC SCH (22:25)
[2020-11-05] MEDS: hydrOXYzine PAMOATE 25 MG CAPSULE (FP) PO SCH ×5 (06:08→22:19)
[2020-11-05] MEDS ORDERED: methaDONE HCL 10 MG TABLET (FOR DETOX USE ONLY) ONE (09:09)
[2020-11-05] MEDS: PRENATAL VITAMINS W/ FOLIC ACID TABLET (FP) PO SCH (10:28)
[2020-11-05] MEDS: NICOTINE 14 MG/24 HOURS TOPICAL PATCH TD SCH (10:28)
[2020-11-05] MEDS: LIDOCAINE 5% TOPICAL PATCH TP SCH (10:29)
[2020-11-05] MEDS: METHOCARBAMOL 500 MG TABLET PO PRN (14:40)
[2020-11-05] MEDS: IBUPROFEN 400 MG TABLET (FP) PO PRN (14:40)
[2020-11-05] MEDS: THIAMINE HCL 100 MG TABLET (FP) PO SCH (22:19)
[2020-11-05] MEDS: DOXEPIN HCL 50 MG CAPSULE PO SCH (22:19)
[2020-11-05] MEDS: MELATONIN 5 MG TABLETS PO SCH (22:19)
[2020-11-05] MEDS: LIDOCAINE PATCH REMOVAL MC SCH (22:20)
[2020-11-06] MEDS: hydrOXYzine PAMOATE 25 MG CAPSULE (FP) PO SCH ×5 (05:57→22:28)
[2020-11-06] MEDS: METHOCARBAMOL 500 MG TABLET PO PRN ×3 (05:59→22:29)
[2020-11-06] MEDS: LIDOCAINE 5% TOPICAL PATCH TP SCH (09:53)
[2020-11-06] MEDS: NICOTINE 14 MG/24 HOURS TOPICAL PATCH TD SCH (09:53)
[2020-11-06] MEDS: PRENATAL VITAMINS W/ FOLIC ACID TABLET (FP) PO SCH (09:53)
[2020-11-06] MEDS ORDERED: methaDONE HCL 10 MG TABLET (FOR DETOX USE ONLY) PO ONE (10:00)
[2020-11-06] MEDS ORDERED: IBUPROFEN 400 MG TABLET (FP) PO PRN (14:03)
[2020-11-06] MEDS: NICOTINE 10 MG CARTRIDGE (INHALER) IH PRN (17:42)
[2020-11-06] MEDS: THIAMINE HCL 100 MG TABLET (FP) PO SCH (22:28)
[2020-11-06] MEDS: MELATONIN 5 MG TABLETS PO SCH (22:29)
[2020-11-06] MEDS: DOXEPIN HCL 50 MG CAPSULE PO SCH (22:29)
[2020-11-06] MEDS: LIDOCAINE PATCH REMOVAL MC SCH (23:38)
[2020-11-07] MEDS: hydrOXYzine PAMOATE 25 MG CAPSULE (FP) PO SCH (06:27)
[2020-11-07] MEDS: METHOCARBAMOL 500 MG TABLET PO PRN (06:30)
[2020-11-07 09:13] VITALS: BP 108/79; PULSE 111; TEMP 97.6
== END 2020-11-07 09:29 | disposition home or self-care (01) | DRG 773 ==
LOC: YASAS 12:36 → Y6N 16:59
PROVIDERS: ADMIT Allergy & Immunology; ATTEND Allergy & Immunology
PROC: HZ2ZZZZ Detoxification Services for Substance Abuse Treatment (ICD-10-PCS; principal; 2020-11-02)
DX: F11.23 Opioid dependence with withdrawal (principal); F13.20 Sedative, hypnotic or anxiolytic dependence, uncomplicated; F14.10 Cocaine abuse, uncomplicated; F15.20 Other stimulant dependence, uncomplicated; F17.210 Nicotine dependence, cigarettes, uncomplicated; F19.280 Other psychoactive substance dependence with psychoactive substance-induced anxiety disorder; F19.282 Other psychoactive substance dependence with psychoactive substance-induced sleep disorder; F41.9 Anxiety disorder, unspecified; G89.29 Other chronic pain; M25.561 Pain in right knee; M54.5 Low back pain; Z91.410 Personal history of adult physical and sexual abuse; Z87.42 Personal history of other diseases of the female genital tract
CPT/HCPCS: 36415; 80053; 85027; 86780; C9803; U0003; U0005